=== PATIENT | male | born 1935 | race Caucasian/White ===

== ENCOUNTER 2017-09-29 17:23 | Inpatient (IN) | payer MEDICARE ==
[~2017-09-29] VITALS: Ht 185.4 cm; Wt 90.8 kg
[~2017-09-29 17:23] MED LIST: CALCIUM CHLORIDE 100 MG/ML 10 ML SYG IVP ONE; DOPAMINE HCL 400 MG/D5%-WATER 250 ML IV ONE; EPINEPHRINE 0.1 MG/ML 10 ML SYG IVP ONE; SODIUM BICARB 8.4% 50ML SYRINGE IVP ONE
[2017-09-29 18:00] LABS: BASOPHILS % (AUTO) 0.3 % (0.0-5.0); EOSINOPHILS % (AUTO) 0.3 % (0.0-8.0); HEMATOCRIT 45.8 % (42-54); LYMPHOCYTES % (AUTO) 50.1 % (21.0-51.0); MEAN CORPUSCULAR HEMOGLOBIN 30.6 pg (27.0-33.0); MEAN CORPUSCULAR HGB CONC 33.7 g/dL (32.0-36.0); MEAN CORPUSCULAR VOLUME 90.8 fL (79-99); MONOCYTES % (AUTO) 5.9 % (3.0-13.0); NEUTROPHILS % (AUTO) 43.4 % (40.0-77.0); PLATELET COUNT (AUTO) 181 K/uL (130-400); RED BLOOD CELL COUNT(AUTO) 5.04 MIL/uL (4.50-6.20); RED CELL DISTRIBUTION WIDTH 14.3 % (11.0-15.5); WHITE BLOOD COUNT (AUTO) 20.2 K/uL (4.8-10.8)
[2017-09-29 18:09] LABS: POTASSIUM 4.2 mmol/L (3.5-5.1)
[2017-09-29 18:14] LABS: ALBUMIN 3.7 g/dL (3.5-5.0); TOTAL PROTEIN, SERUM 6.9 g/dL (6.0-8.3)
[2017-09-29 18:37] LABS: APPEARANCE,URINE Clear (CLEAR); BILIRUBIN,URINE Negative (NEGATIVE); COLOR,URINE Yellow (YELLOW); GLUCOSE, URINE (UA) Negative (NEGATIVE); KETONES,URINE 15 mg/dL (NEGATIVE); LEUKOCYTE ESTERASE ,URINE Negative (NEGATIVE); NITRATE,URINE Negative (NEGATIVE); OCCULT BLOOD,URINE Moderate (NEGATIVE); PROTEIN,URINE Negative (NEGATIVE); UROBILINOGEN,URINE 0.2 mg/dL (0.2-1.0)
[2017-09-29 18:45] LABS: BACTERIA,URINE Rare /HPF (None Seen); WBC,URINE 0-1 /HPF (0-1)
[2017-09-29 18:46] LABS: SQUAMOUS EPITHELIAL CELL,UR None Seen /HPF (0-2)
[2017-09-29 20:13] LABS: CREATINE KINASE MB 24.5 ng/mL (0.5-3.6)
[2017-09-29] MEDS: SODIUM CHLORIDE 0.9% 1000ML 1,000 ML IV SCH (21:30)
[2017-09-29] MEDS ORDERED: ONDANSETRON HCL MDV 20ML 2 MG/ML VIAL IVP PRN (21:30)
[2017-09-29] MEDS ORDERED: ACETAMINOPHEN-CODEINE 300/30MG TAB PO PRN (21:30)
[2017-09-29] MEDS ORDERED: CEFTRIAXONE 1GM/D5W 50ML 50 ML IV SCH (21:30)
[2017-09-29] MEDS ORDERED: FAMOTIDINE 20MG TAB 20 MG TAB PO SCH (21:39)
[2017-09-29] MEDS: CEFTRIAXONE SODIUM 1 GM IVP SCH (21:45)
[2017-09-29] MEDS ORDERED: CEFTRIAXONE SODIUM 1 GM ONE (23:51)
[2017-09-30 00:39] VITALS: BP 125/72
[2017-09-30 04:04] VITALS: BP 117/68
[2017-09-30 05:01] LABS: BASOPHILS % (AUTO) 0.2 % (0.0-5.0); EOSINOPHILS % (AUTO) 0.4 % (0.0-8.0); HEMATOCRIT 41.2 % (42-54); MEAN CORPUSCULAR HEMOGLOBIN 31.7 pg (27.0-33.0); MEAN CORPUSCULAR HGB CONC 34.6 g/dL (32.0-36.0); MEAN CORPUSCULAR VOLUME 91.4 fL (79-99); MONOCYTES % (AUTO) 5.3 % (3.0-13.0); NEUTROPHILS % (AUTO) 40.1 % (40.0-77.0); NUCLEATED RED BLOOD CELLS 0.3 % (0.0-0.19); PLATELET COUNT (AUTO) 162 K/uL (130-400); RED BLOOD CELL COUNT(AUTO) 4.51 MIL/uL (4.50-6.20); RED CELL DISTRIBUTION WIDTH 14.1 % (11.0-15.5); WHITE BLOOD COUNT (AUTO) 19.4 K/uL (4.8-10.8)
[2017-09-30 05:39] LABS: CREATINE KINASE MB 26.3 ng/mL (0.5-3.6); POTASSIUM 4.2 mmol/L (3.5-5.1)
[2017-09-30 05:46] LABS: TROPONIN I 9.81 ng/mL (0.00-0.06)
[2017-09-30] MEDS: SODIUM CHLORIDE 0.9% 1000ML 1,000 ML IV SCH (05:47)
[2017-09-30 07:27] VITALS: BP 122/55
[2017-09-30] MEDS ORDERED: LOVA40TA2 PO (10:55)
[2017-09-30] MEDS ORDERED: METO-409 PO (10:55)
[2017-09-30] MEDS ORDERED: ASPI-555 PO (11:05)
[2017-09-30] MEDS ORDERED: NEO/5DRO7 OU (11:07)
[2017-09-30 11:21] VITALS: BP 103/56
[2017-09-30 13:00] LABS: INR 1.07 (0.85-1.15); PROTHROMBIN TIME 11.2 SEC (9.6-11.6)
[2017-09-30] MEDS: NEOMYCIN/POLYMYXIN B/DEXAMETHASONE 5 ML OPHTH SUSP OU SCH ×3 (13:00→20:33)
[2017-09-30 13:21] LABS: CREATINE KINASE MB 22.7 ng/mL (0.5-3.6)
[2017-09-30 13:22] LABS: TROPONIN I 9.35 ng/mL (0.00-0.06)
[2017-09-30 16:39] VITALS: BP 113/60
[2017-09-30] MEDS: ASPIRIN 81MG TAB.CHEW PO SCH (18:27)
[2017-09-30] MEDS: AZITHROMYCIN 500MG+NS 250ML 250 ML IV SCH (18:27)
[2017-09-30] MEDS: IPRATROPIUM 0.5 MG/2.5 ML INH IH SCH ×2 (18:32→23:29)
[2017-09-30] MEDS ORDERED: QUETIAPINE FUMARATE 25 MG TAB PO PRN (19:30)
[2017-09-30 19:41] VITALS: BP 122/79
[2017-09-30] MEDS: METOPROLOL TARTRATE 50 MG TAB PO SCH (20:32)
[2017-09-30] MEDS: CEFTRIAXONE SODIUM 1 GM IVP SCH (20:32)
[2017-09-30] MEDS: ATORVASTATIN CALCIUM 40 MG TABLET PO SCH (20:32)
[2017-09-30] MEDS ORDERED: ATORVASTATIN CALCIUM 10 MG TABLET PO SCH (21:00)
[2017-10-01] VITALS (7 sets, daily range): BP systolic 97–130; BP diastolic 58–93
[2017-10-01] MEDS: SODIUM CHLORIDE 0.9% 1000ML 1,000 ML IV SCH ×2 (00:24→13:30)
[2017-10-01 03:44] LABS: MEAN CORPUSCULAR HEMOGLOBIN 30.7 pg (27.0-33.0); MEAN CORPUSCULAR HGB CONC 33.8 g/dL (32.0-36.0); MEAN CORPUSCULAR VOLUME 90.9 fL (79-99); NUCLEATED RED BLOOD CELLS 0.1 % (0.0-0.19); PLATELET COUNT (AUTO) 158 K/uL (130-400); RED BLOOD CELL COUNT(AUTO) 4.41 MIL/uL (4.50-6.20); RED CELL DISTRIBUTION WIDTH 14.4 % (11.0-15.5); WHITE BLOOD COUNT (AUTO) 19.4 K/uL (4.8-10.8)
[2017-10-01 03:53] LABS: MAGNESIUM 1.8 mg/dL (1.80-2.40); POTASSIUM 4.1 mmol/L (3.5-5.1)
[2017-10-01] MEDS: IPRATROPIUM 0.5 MG/2.5 ML INH IH SCH ×4 (06:05→23:17)
[2017-10-01] MEDS: ASPIRIN 81MG TAB.CHEW PO SCH (10:45)
[2017-10-01] MEDS: NEOMYCIN/POLYMYXIN B/DEXAMETHASONE 5 ML OPHTH SUSP OU SCH ×4 (10:46→21:11)
[2017-10-01] MEDS: METOPROLOL TARTRATE 50 MG TAB PO SCH ×2 (10:46→21:11)
[2017-10-01] MEDS ORDERED: OLANZAPINE 10MG/ML 1ML VIAL IM PRN (15:00)
[2017-10-01] MEDS: QUETIAPINE FUMARATE 25 MG TAB PO SCH ×2 (15:30→21:08)
[2017-10-01] MEDS: AZITHROMYCIN 500MG+NS 250ML 250 ML IV SCH (15:58)
[2017-10-01] MEDS: CEFTRIAXONE SODIUM 1 GM IVP SCH (21:08)
[2017-10-01] MEDS: ATORVASTATIN CALCIUM 40 MG TABLET PO SCH (21:11)
[2017-10-02 03:42] VITALS: BP 125/63
[2017-10-02] MEDS: SODIUM CHLORIDE 0.9% 1000ML 1,000 ML IV SCH (05:04)
[2017-10-02] MEDS: IPRATROPIUM 0.5 MG/2.5 ML INH IH SCH ×2 (05:49→10:48)
[2017-10-02 07:00] VITALS: BP 109/62
[2017-10-02] MEDS: ASPIRIN 81MG TAB.CHEW PO SCH (08:31)
[2017-10-02] MEDS: AZITHROMYCIN 500MG+NS 250ML 250 ML IV SCH (08:31)
[2017-10-02] MEDS: METOPROLOL TARTRATE 50 MG TAB PO SCH ×2 (08:31→21:40)
[2017-10-02] MEDS: NEOMYCIN/POLYMYXIN B/DEXAMETHASONE 5 ML OPHTH SUSP OU SCH ×4 (08:32→21:00)
[2017-10-02 11:00] VITALS: BP 110/58
[2017-10-02 14:30] LABS: HEMATOCRIT 39.5 % (42-54); MEAN CORPUSCULAR HEMOGLOBIN 31.1 pg (27.0-33.0); MEAN CORPUSCULAR HGB CONC 34.2 g/dL (32.0-36.0); MEAN CORPUSCULAR VOLUME 91.1 fL (79-99); NUCLEATED RED BLOOD CELLS 0.1 % (0.0-0.19); PLATELET COUNT (AUTO) 171 K/uL (130-400); RED BLOOD CELL COUNT(AUTO) 4.34 MIL/uL (4.50-6.20); WHITE BLOOD COUNT (AUTO) 16.7 K/uL (4.8-10.8)
[2017-10-02 16:00] VITALS: BP 122/67
[2017-10-02 16:11] LABS: BAND NEUTROPHILS % (MANUAL) 1 % (0-2); BASOPHILS % (MANUAL) 1 % (0-2); EOSINOPHILS % (MANUAL) 1 % (1-6); LYMPHOCYTES % (MANUAL) 49 % (22-44); MAN.DIFF COMMENT-IMPRESSION MANUAL DIFFERENTIAL; MONOCYTES % (MANUAL) 3 % (2-9); REACTIVE LYMPHOCYTES 2 % (0-0); SEGMENTED NEUTROPHILS % 43 % (40-70)
[2017-10-02] MEDS: IPRATROPIUM/ALBUTEROL SULFATE 3 ML SOLUTION IH SCH ×2 (18:31→23:24)
[2017-10-02 19:47] VITALS: BP 127/77
[2017-10-02] MEDS: QUETIAPINE FUMARATE 25 MG TAB PO SCH (21:40)
[2017-10-02] MEDS: ATORVASTATIN CALCIUM 40 MG TABLET PO SCH (21:40)
[2017-10-02] MEDS: CEFTRIAXONE SODIUM 1 GM IVP SCH (21:41)
[2017-10-02 23:21] VITALS: BP 108/50
[2017-10-03 03:06] VITALS: BP 111/72
[2017-10-03 03:50] LABS: HEMATOCRIT 41.1 % (42-54); MEAN CORPUSCULAR HEMOGLOBIN 30.4 pg (27.0-33.0); MEAN CORPUSCULAR HGB CONC 33.4 g/dL (32.0-36.0); MEAN CORPUSCULAR VOLUME 90.9 fL (79-99); PLATELET COUNT (AUTO) 170 K/uL (130-400); RED BLOOD CELL COUNT(AUTO) 4.53 MIL/uL (4.50-6.20); RED CELL DISTRIBUTION WIDTH 14.5 % (11.0-15.5); WHITE BLOOD COUNT (AUTO) 17.4 K/uL (4.8-10.8)
[2017-10-03 03:55] LABS: CREATININE 0.9 mg/dL (0.5-1.5); POTASSIUM 3.9 mmol/L (3.5-5.1)
[2017-10-03] MEDS: IPRATROPIUM/ALBUTEROL SULFATE 3 ML SOLUTION IH SCH ×3 (06:36→18:37)
[2017-10-03 07:39] VITALS: BP 108/65
[2017-10-03] MEDS: AZITHROMYCIN 500MG+NS 250ML 250 ML IV SCH (08:28)
[2017-10-03] MEDS: NEOMYCIN/POLYMYXIN B/DEXAMETHASONE 5 ML OPHTH SUSP OU SCH ×4 (08:29→23:03)
[2017-10-03] MEDS: ASPIRIN 81MG TAB.CHEW PO SCH (08:29)
[2017-10-03] MEDS: METOPROLOL TARTRATE 50 MG TAB PO SCH ×2 (08:29→21:22)
[2017-10-03] MEDS: CLOPIDOGREL BISULFATE 75 MG TAB PO SCH (08:29)
[2017-10-03 11:03] VITALS: BP 102/52
[2017-10-03 16:18] VITALS: BP 102/68
[2017-10-03 19:59] VITALS: BP 110/61
[2017-10-03] MEDS: QUETIAPINE FUMARATE 25 MG TAB PO SCH (21:22)
[2017-10-03] MEDS: CEFTRIAXONE SODIUM 1 GM IVP SCH (21:22)
[2017-10-03] MEDS: ATORVASTATIN CALCIUM 40 MG TABLET PO SCH (21:22)
[2017-10-03 23:21] VITALS: BP 116/61
[2017-10-04] MEDS: IPRATROPIUM/ALBUTEROL SULFATE 3 ML SOLUTION IH SCH ×3 (00:06→11:09)
[2017-10-04 03:38] VITALS: BP 114/58
[2017-10-04 04:29] LABS: HEMATOCRIT 41.3 % (42-54); MEAN CORPUSCULAR HEMOGLOBIN 30.8 pg (27.0-33.0); MEAN CORPUSCULAR HGB CONC 33.7 g/dL (32.0-36.0); MEAN CORPUSCULAR VOLUME 91.4 fL (79-99); NUCLEATED RED BLOOD CELLS 0.1 % (0.0-0.19); PLATELET COUNT (AUTO) 199 K/uL (130-400); RED BLOOD CELL COUNT(AUTO) 4.52 MIL/uL (4.50-6.20); RED CELL DISTRIBUTION WIDTH 14.1 % (11.0-15.5); WHITE BLOOD COUNT (AUTO) 18.7 K/uL (4.8-10.8)
[2017-10-04 04:54] LABS: POTASSIUM 4.1 mmol/L (3.5-5.1)
[2017-10-04 05:10] LABS: BAND NEUTROPHILS % (MANUAL) 2 % (0-2); EOSINOPHILS % (MANUAL) 3 % (1-6); LYMPHOCYTES % (MANUAL) 60 % (22-44); MONOCYTES % (MANUAL) 6 % (2-9); SEGMENTED NEUTROPHILS % 29 % (40-70)
[2017-10-04 05:11] LABS: MAN.DIFF COMMENT-IMPRESSION MANUAL DIFFERENTIAL; PLATELET MORPHOLOGY COMMENT ADEQUATE
[2017-10-04 08:03] VITALS: BP 108/57
[2017-10-04] MEDS: NEOMYCIN/POLYMYXIN B/DEXAMETHASONE 5 ML OPHTH SUSP OU SCH (08:33)
[2017-10-04] MEDS: CLOPIDOGREL BISULFATE 75 MG TAB PO SCH (08:33)
[2017-10-04] MEDS: ASPIRIN 81MG TAB.CHEW PO SCH (08:33)
[2017-10-04] MEDS: METOPROLOL TARTRATE 50 MG TAB PO SCH (08:33)
[2017-10-04] MEDS: AZITHROMYCIN 500MG+NS 250ML 250 ML IV SCH (08:33)
[2017-10-04 11:00] VITALS: BP 106/59
== END 2017-10-04 12:02 | disposition expired ==
LOC: EDH 17:23 → EDHIP 19:41 → 2AH 09-30 00:16
PROVIDERS: ADMIT Family Medicine; ATTEND Family Medicine
PROC: 5A12012 Performance of Cardiac Output, Single, Manual (ICD-10-PCS; principal; 2017-10-04)
PROC: 0BH17EZ Insertion of Endotracheal Airway into Trachea, Via Natural or Artificial Opening (ICD-10-PCS; 2017-10-04)
DX: I21.4 Non-ST elevation (NSTEMI) myocardial infarction (principal); J18.9 Pneumonia, unspecified organism; E78.5 Hyperlipidemia, unspecified; F17.210 Nicotine dependence, cigarettes, uncomplicated; F32.9 Major depressive disorder, single episode, unspecified; I10 Essential (primary) hypertension; I25.2 Old myocardial infarction; J20.9 Acute bronchitis, unspecified; Z66 Do not resuscitate; Z60.2 Problems related to living alone
CPT/HCPCS: 31500; 36415; 70450; 70551; 71045; 80048; 80053; 80061; 81001; 82550; 82553; 82948; 83605; 83735; 83874; 84443; 84484; 85025; 85027; 85610; 85730; 87040; 87633; 87804; 92610; 92950; 93005; 93306; 94640; 94664; A4218; J0171; J0456; J0696; J1265; J3490; J7030